=== PATIENT | male | born 1970 | race Caucasian/White ===

== ENCOUNTER 2024-03-06 11:45 | Day surgery (SDC) | payer OTHER ==
[~2024-03-06] VITALS: Ht 182.9 cm; Wt 88.5 kg
[~2024-03-06 11:45] MED LIST: Lactated Ringer's 1,000 ML IV ONE; propofoL 50 ML IV ONE
[2024-03-06] MEDS ORDERED: Lactated Ringer's 1,000 ML IV ONE (12:30)
[2024-03-06 14:03] VITALS: BP 115/83
== END 2024-03-06 14:19 | disposition home or self-care (01) ==
LOC: ORSCSDS 11:45
PROVIDERS: Internal Medicine Gastroenterology
PROC: 0DBL8ZX Excision of Transverse Colon, Via Natural or Artificial Opening Endoscopic, Diagnostic (ICD-10-PCS; principal; 2024-03-06 14:15)
PROC: 0DBM8ZX Excision of Descending Colon, Via Natural or Artificial Opening Endoscopic, Diagnostic (ICD-10-PCS; principal; 2024-03-06 14:15)
PROC: 0DBH8ZX Excision of Cecum, Via Natural or Artificial Opening Endoscopic, Diagnostic (ICD-10-PCS; principal; 2024-03-06 14:15)
PROC: 0DBK8ZX Excision of Ascending Colon, Via Natural or Artificial Opening Endoscopic, Diagnostic (ICD-10-PCS; principal; 2024-03-06 14:15)
DX: R19.7 Diarrhea, unspecified (principal); C18.0 Malignant neoplasm of cecum; Z85.038 Personal history of other malignant neoplasm of large intestine; Z86.0100 Personal history of colon polyps, unspecified; D12.2 Benign neoplasm of ascending colon; D12.3 Benign neoplasm of transverse colon; D12.4 Benign neoplasm of descending colon; F17.210 Nicotine dependence, cigarettes, uncomplicated; F10.11 Alcohol abuse, in remission
CPT/HCPCS: 88305; J2704; J7120